=== PATIENT | female | born 1960 | race Caucasian/White ===

== ENCOUNTER 2017-10-24 14:40 | Emergency (ER) | payer BC ==
[2017-10-24 15:54] LABS: URINE APPEARANCE CLEAR; URINE BILIRUBIN NEGATIVE (NEGATIVE); URINE BLOOD TRACE-I (NEGATIVE); URINE COLOR YELLOW; URINE GLUCOSE (UA) NEGATIVE (NEGATIVE); URINE KETONE NEGATIVE (NEGATIVE); URINE LEUKOCYTE ESTERASE NEGATIVE (NEGATIVE); URINE NITRITE NEGATIVE (NEGATIVE); URINE PROTEIN NEGATIVE (NEGATIVE); URINE UROBILINOGEN 0.2 E.U./dL (0.20 - 1.00)
[2017-10-24] MEDS: ASPIRIN 81 MG CHEWABLE TABLET PO ONE (15:54)
[2017-10-24 15:55] LABS: BASO % 0.4 % (0-6); EOS % 1.3 % (0-6); GRAN % 62.3 % (47-80); HEMATOCRIT 42.3 % (35.0-47.0); HEMOGLOBIN 14.1 gm/dl (11.6-16.0); LYMPH % 30.6 % (16-45); MEAN CELL VOLUME 93.8 fl (81-97); MEAN CORPUSCULAR HEMOGLOBIN 31.3 pg (27-33); MEAN CORPUSCULAR HGB CONC 33.3 g/dl (32-36); MEAN PLATELET VOLUME 9.6 fl (7.4-10.4); MONO % 5.4 % (0-9); PLATELET COUNT 339 K/uL (130-400); RED BLOOD COUNT 4.51 M/uL (3.80-5.40); RED CELL DISTRIBUTION WIDTH 14.6 % (11.5-14.5); WHITE BLOOD COUNT W/O DIFF 10.8 K/uL (4.2-12.2)
[2017-10-24 16:03] LABS: URINE BACTERIA 2+; URINE RBC 0 - 2 (NONE SEEN); URINE WBC 0 - 2 (0-2/hpf)
[2017-10-24 16:05] LABS: BLOOD UREA NITROGEN 22 mg/dL (6-20)
[2017-10-24 16:06] LABS: CREATININE 0.8 mg/dL (0.5-0.9); EST GLOMERULAR FILTRATION RATE > 60 mL/min; TOTAL PROTEIN 8.6 g/dL (6.6-8.7)
[2017-10-24 16:08] LABS: GLUCOSE,RANDOM 99 mg/dL (74-109)
[2017-10-24 16:11] LABS: ALB/GLOB RATIO 1.2 (1.1-1.8); ALBUMIN 4.6 g/dL (4.0-5.0); ALKALINE PHOSPHATASE 73 U/L (35-104); ALT/SGPT 17 U/L (<33); AST/SGOT 19 U/L (10.0-35.0); CREATINE PHOSPHOKINASE 323 U/L (26-192)
[2017-10-24 16:13] LABS: CKMB 4.2 ng/mL (<3.77)
[2017-10-24 16:14] LABS: NTpro B-NATRIURETIC PEPTIDE 35.79 pg/mL (<125)
[2017-10-24 16:24] LABS: THYROID STIMULATING HORMONE 11.02 uIU/mL (0.270-4.20)
[2017-10-24] MEDS: ONDANSETRON HCL IV 4 MG/2 ML VIAL IVP ONE (17:12)
[2017-10-24 17:27] LABS: THYROXINE (T4) 8.5 ug/dL (4.5-11.7)
--- NOTE | 2017-10-24 18:25 | Emergency Department Record ---
History of Present Illness - General Chief Complaint: Chest Pain Stated Complaint: CHEST PAINS Time Seen by Provider: 10/24/17 15:03 Source: Patient Mode of Arrival: Ambulatory Limitations: No limitations - History of Present Illness Initial Comments: pt was at a motorcycle class in [place] and became very hot, she became lightheaded and sob. they stopped the class and had her leave. it was 45 minutes away. as she was driving home she still felt sob and then thought she had some tightness/heaviness in her chest. by the time she got here the heaviness is gone but she still feels sob. she stopped smoking a year ago. Complaint: Chest pain Onset/Timin -: Days(s) Pain Location: Substernal Severity scale (1-10): 4 Quality: Aching, Dull Consistency: Constant Improves With: Nothing Worsens With: Nothing Anginal Symptoms: Dyspnea Treatments Prior to Arrival: None - Related Data Allergies Allergy/AdvReac Type Severity Reaction Status Date / Time iodine Allergy Intermediate unknown Verified 10/24/17 14:51 acetaminophen [From Vicodin] Allergy Mild unknown Verified 10/24/17 14:51 amitriptyline HCl Allergy Mild unknown Verified 10/24/17 14:51 [From Elavil] aripiprazole [From Abilify] Allergy Mild unknown Verified 10/24/17 14:51 brexpiprazole [From Rexulti] Allergy Mild unknown Verified 10/24/17 14:51 bupropion HCl Allergy Mild unknown Verified 10/24/17 14:51 [From Wellbutrin] carisoprodol [From Soma] Allergy Mild unknown Verified 10/24/17 14:51 chlorpromazine HCl Allergy Mild unknown Verified 10/24/17 14:51 [From Thorazine] citalopram hydrobromide Allergy Mild unknown Verified 10/24/17 14:51 [From Celexa] clomipramine HCl Allergy Mild unknown Verified 10/24/17 14:51 [From Anafranil] clozapine [From Clozaril] Allergy Mild unknown Verified 10/24/17 14:51 codeine Allergy Mild unknown Verified 10/24/17 14:51 desipramine HCl Allergy Mild unknown Verified 10/24/17 14:51 [From Norpramin] diazepam [From Valium] Allergy Mild unknown Verified 10/24/17 14:51 doxepin HCl [From Sinequan] Allergy Mild unknown Verified 10/24/17 14:51 duloxetine HCl Allergy Mild unknown Verified 10/24/17 14:51 [From Cymbalta] escitalopram oxalate Allergy Mild unknown Verified 10/24/17 14:51 [From Lexapro] fluoxetine HCl [From Prozac] Allergy Mild unknown Verified 10/24/17 14:51 fluphenazine enanthate Allergy Mild unknown Verified 10/24/17 14:51 [From Prolixin] fluphenazine HCl Allergy Mild unknown Verified 10/24/17 14:51 [From Prolixin] fluvoxamine maleate Allergy Mild unknown Verified 10/24/17 14:51 [From Luvox] haloperidol [From Haldol] Allergy Mild unknown Verified 10/24/17 14:51 haloperidol lactate Allergy Mild unknown Verified 10/24/17 14:51 [From Haldol] hydrocodone bitartrate Allergy Mild unknown Verified 10/24/17 14:51 [From Vicodin] iloperidone [From Fanapt] Allergy Mild uknown Verified 10/24/17 14:51 imipramine HCl Allergy Mild unknown Verified 10/24/17 14:51 [From Tofranil] loratadine [From Claritin] Allergy Mild unknown Verified 10/24/17 14:51 meperidine HCl [From Demerol] Allergy Mild unknown Verified 10/24/17 14:51 methadone HCl Allergy Mild unknown Verified 10/24/17 14:51 [From Dolophine] mirtazapine [From Remeron] Allergy Mild unknown Verified 10/24/17 14:51 naltrexone Allergy Mild unknown Verified 10/24/17 14:51 nortriptyline HCl Allergy Mild unknown Verified 10/24/17 14:51 [From Pamelor] olanzapine [From Zyprexa] Allergy Mild unknown Verified 10/24/17 14:51 oxycodone HCl Allergy Mild unknown Verified 10/24/17 14:51 [From OxyContin] paroxetine HCl [From Paxil] Allergy Mild unknown Verified 10/24/17 14:51 perphenazine [From Trilafon] Allergy Mild unknown Verified 10/24/17 14:51 pine nut Allergy Mild unknown Verified 10/24/17 14:51 propranolol HCl Allergy Mild unknown Verified 10/24/17 14:51 [From Inderal [place]] quetiapine fumarate Allergy Mild unknown Verified 10/24/17 14:51 [From Seroquel] risperidone [From Risperdal] Allergy Mild unknown Verified 10/24/17 14:51 selegiline [From Emsam] Allergy Mild unknown Verified 10/24/17 14:51 sertraline HCl [From Zoloft] Allergy Mild unknown Verified 10/24/17 14:51 tapentadol HCl [From Nucynta] Allergy Mild unknown Verified 10/24/17 14:51 thioridazine HCl Allergy Mild unknown Verified 10/24/17 14:51 [From Mellaril] tramadol Allergy Mild unknown Verified 10/24/17 14:51 trazodone HCl [From Desyrel] Allergy Mild unknown Verified 10/24/17 14:51 varenicline tartrate Allergy Mild unknown Verified 10/24/17 14:51 [From Chantix] venlafaxine HCl Allergy Mild unknown Verified 10/24/17 14:51 [From Effexor] vortioxetine hydrobromide Allergy Mild unknown Verified 10/24/17 14:51 [From Trintellix] zolpidem tartrate Allergy Mild unknown Verified 10/24/17 14:51 [From Ambien] chlorhexidine Allergy unknown Verified 10/24/17 14:51 Travel Screening - Travel/Exposure Within Last 30 Days Have you traveled within the last 30 days?: No - Travel/Exposure Within Last Year Have you traveled outside the [place] in the last year?: No - Additonal Travel Details Have you been exposed to anyone with a communicable illness?: No - Travel Symptoms Symptom Screening: None Review of Systems Reviewed: No additional complaints except as noted below Constitutional: Reports: As per HPI, Weight change. Denies: Chills, Fever, Malaise, Night sweats, Weakness Eyes: Reports: As per HPI. Denies: Eye discharge, Eye pain, Photophobia, Vision change ENT: Reports: As per HPI. Denies: Congestion, Dental pain, Ear pain, Epistaxis , Hearing loss, Throat pain Respiratory: Reports: As per HPI, Dyspnea. Denies: Cough, Hemoptysis, Stridor, Wheezes Cardiovascular: Reports: As per HPI, Chest pain, Dyspnea on exertion. Denies: Arrhythmia, Edema, Murmurs, Orthopnea, Palpitations, Paroxysmal nocturnal dyspnea, Rheumatic Fever, Syncope Endocrine: Reports: As per HPI. Denies: Fatigue, Heat or cold intolerance, Polydipsia, Polyuria Gastrointestinal: Reports: As per HPI. Denies: Abdominal pain, Constipation, Diarrhea, Hematemesis, Hematochezia, Melena, Nausea, Vomiting Genitourinary: Reports: As per HPI. Denies: Abnormal menses, Discharge, Dyspareunia, Dysuria, Frequency, Hematuria, Incontinence, Retention, Urgency Musculoskeletal: Reports: As per HPI. Denies: Arthralgia, Back pain, Gout, Joint swelling, Myalgia, Neck pain Skin: Reports: As per HPI. Denies: Bruising, Change in color, Change in hair/ nails, Lesions, Pruritus, Rash Neurological: Reports: As per HPI. Denies: Abnormal gait, Confusion, Headache, Numbness, Paresthesias, Seizure, Tingling, Tremors, Vertigo, Weakness Psychiatric: Reports: As per HPI. Denies: Anxiety, Auditory hallucinations, Depression, Homicidal thoughts, Suicidal thoughts, Visual hallucinations Hematological/Lymphatic: Reports: As per HPI. Denies: Anemia, Blood Clots, Easy bleeding, Easy bruising, Swollen glands Past Medical History - SOCIAL HISTORY Smoking Status: Former smoker Alcohol Use: Occasional Drug Use: Occasional Drug Use Detail:: Marijuana - RESPIRATORY Hx Respiratory Disorders: Yes Hx COPD: Yes (emphysema) - CARDIOVASCULAR Hx Cardio Disorders: Yes Hx Hypertension: Yes - NEURO Hx Neuro Disorders: Yes Hx Neuropathy: Yes (both hands, left arm) Hx Weakness: Yes - GI Hx GI Disorders: Yes Hx Abdominal Pain: Yes (RUQ, LLQ) Hx Diverticulitis: Yes (in past (?)) Hx GI Bleed: Yes Hx Liver Disease: Yes (B (from a blood tranfussion)) Hx Nausea/Vomiting: Yes Hx Rectal Bleeding: Yes - Hx Genitourinary Disorders: Yes Hx Bladder Problem: Yes (stress incontinence) - ENDOCRINE Hx Endocrine Disorders: Yes Hx Thyroid Disease: Yes (hoshimotos) - MUSCULOSKELETAL Hx Musculoskeletal Disorders: Yes Comment:: right elbow tendonistis - PSYCH Hx Psych Problems: Yes Comment:: PTSD - HEMATOLOGY/ONCOLOGY Hx Hematology/Oncology Disorders: Yes Hx Blood Transfusions: Yes Hx Blood Transfusion Reaction: Yes (Hep B) Family Medical History Any Significant Family History?: No Hx Heart Disease: Father Physical Exam - General General Appearance: Alert, Oriented x3, Cooperative, No acute distress - Head Head exam: Normal inspection - Eye Eye exam: Normal appearance, PERRL, EOMI Pupils: Normal accommodation - ENT ENT exam: Normal exam, Mucous membranes moist, Normal external ear exam, Normal orophraynx Ear exam: Normal external inspection. negative: External canal tenderness Nasal Exam: Normal inspection. negative: Discharge, Sinus tenderness Mouth exam: Normal external inspection, Tongue normal Teeth exam: Normal inspection. negative: Dental caries Throat exam: Normal inspection. negative: Tonsillar erythema, Tonsillar exudate - Neck Neck exam: Normal inspection, Full ROM. negative: Tenderness - Respiratory Respiratory exam: Normal lung sounds bilaterally. negative: Respiratory distress - Cardiovascular Cardiovascular Exam: Regular rate, Normal rhythm, Normal heart sounds - GI/Abdominal GI/Abdominal exam: Soft, Normal bowel sounds. negative: Tenderness - Rectal Rectal exam: Deferred - exam: Deferred - Extremities Extremities exam: Normal inspection, Full ROM, Normal capillary refill. negative: Tenderness - Back Back exam: Reports: Normal inspection, Full ROM. Denies: Muscle spasm, Rash noted, Tenderness - Neurological Neurological exam: Alert, CN II-XII intact, Normal gait, Oriented X3 - Psychiatric Psychiatric exam: Normal affect, Normal mood - Skin Skin exam: Dry, Intact, Normal color, Warm Course Vital Signs 10/24/17 10/24/17 10/24/17 14:42 16:30 17:40 Temperature 98.4 F Pulse Rate 87 Pulse Rate [ 85 86 Pulse Ox Probe] Respiratory 20 16 16 Rate Blood Pressure 177/102 Blood Pressure 144/91 153/99 [Left Arm] Pulse Ox 99 100 100 - Reevaluation(s) Reevaluation #1: 10/24/17 18:28 pt has remained pain free. admission or transfer were d/w pt but she does not want that. she has agreed to a 4 hour troponin and cpk ckmb and if its positive she will agree to be transferred. if it is negative pt states she will follow up with a service promoter salesperson in [place] for a stress test Reevaluation #2: 10/24/17 18:32 care being assumed by dr crook Medical Decision Making - Lab Data Result diagrams: 10/24/17 15:35 10/24/17 15:35 Lab Results 10/24/17 10/24/17 10/24/17 Range/Units 15:35 15:35 15:35 WBC 10.8 (4.2-12.2) K/uL RBC 4.51 (3.80-5.40) M/uL Hgb 14.1 (11.6-16.0) gm/dl Hct 42.3 (35.0-47.0) % MCV 93.8 (81-97) fl MCH 31.3 (27-33) pg MCHC 33.3 (32-36) g/dl RDW 14.6 H (11.5-14.5) % Plt Count 339 (130-400) K/uL MPV 9.6 (7.4-10.4) fl Gran % 62.3 (47-80) % Lymphocytes % 30.6 (16-45) % Monocytes % 5.4 (0-9) % Eosinophils % 1.3 (0-6) % Basophils % 0.4 (0-6) % D-Dimer 0.29 (0-0.59) mg/L FEU Sodium 141 (136-145) mmol/L Potassium 3.6 (3.4-4.5) mmol/L Chloride 97 L (98-107) mmol/L Carbon Dioxide 23.0 (22-29) mmol/L Anion Gap 21.0 H (7-16) BUN 22 H (6-20) mg/dL Creatinine 0.8 (0.5-0.9) mg/dL Estimated GFR > 60 mL/min Random Glucose 99 (74-109) mg/dL Calcium 9.7 (8.6-10.0) mg/dL Total Bilirubin 0.20 (0.2-1.0) mg/dL AST 19 (10.0-35.0) U/L ALT 17 (<33) U/L Alkaline Phosphatase 73 (35-104) U/L Creatine Kinase 323 H (26-192) U/L CK-MB (CK-2) 4.2 H (<3.77) ng/mL Troponin T < 0.010 (0-0.010) ng/mL NT-Pro-B Natriuret Pep 35.79 (<125) pg/mL Total Protein 8.6 (6.6-8.7) g/dL Albumin 4.6 (4.0-5.0) g/dL Globulin 4.0 (1.4-4.8) gm/dL Albumin/Globulin Ratio 1.2 (1.1-1.8) TSH 11.02 H (0.270-4.20) uIU/mL Thyroxine (T4) (4.5-11.7) ug/dL T3 Uptake (25-35) % Urine Color Urine Appearance Urine pH (5.0-8.0) Ur Specific [place] (1.002-1.030) Urine Protein (NEGATIVE) Urine Glucose (UA) (NEGATIVE) Urine Ketones (NEGATIVE) Urine Blood (NEGATIVE) Urine Nitrite (NEGATIVE) Urine Bilirubin (NEGATIVE) Urine Urobilinogen (0.20 - 1.00) E.U./dL Ur Leukocyte Esterase (NEGATIVE) Urine RBC (NONE SEEN) Urine WBC (0-2/hpf) Ur Epithelial Cells (FEW) Urine Bacteria 10/24/17 10/24/17 Range/Units 15:35 15:35 WBC (4.2-12.2) K/uL RBC (3.80-5.40) M/uL Hgb (11.6-16.0) gm/dl Hct (35.0-47.0) % MCV (81-97) fl MCH (27-33) pg MCHC (32-36) g/dl RDW (11.5-14.5) % Plt Count (130-400) K/uL MPV (7.4-10.4) fl Gran % (47-80) % Lymphocytes % (16-45) % Monocytes % (0-9) % Eosinophils % (0-6) % Basophils % (0-6) % D-Dimer (0-0.59) mg/L FEU Sodium (136-145) mmol/L Potassium (3.4-4.5) mmol/L Chloride (98-107) mmol/L Carbon Dioxide (22-29) mmol/L Anion Gap (7-16) BUN (6-20) mg/dL Creatinine (0.5-0.9) mg/dL Estimated GFR mL/min Random Glucose (74-109) mg/dL Calcium (8.6-10.0) mg/dL Total Bilirubin (0.2-1.0) mg/dL AST (10.0-35.0) U/L ALT (<33) U/L Alkaline Phosphatase (35-104) U/L Creatine Kinase (26-192) U/L CK-MB (CK-2) (<3.77) ng/mL Troponin T (0-0.010) ng/mL NT-Pro-B Natriuret Pep (<125) pg/mL Total Protein (6.6-8.7) g/dL Albumin (4.0-5.0) g/dL Globulin (1.4-4.8) gm/dL Albumin/Globulin Ratio (1.1-1.8) TSH (0.270-4.20) uIU/mL Thyroxine (T4) 8.50 (4.5-11.7) ug/dL T3 Uptake 33 (25-35) % Urine Color Yellow Urine Appearance Clear Urine pH 5.5 (5.0-8.0) Ur Specific [place] 1.010 (1.002-1.030) Urine Protein Negative (NEGATIVE) Urine Glucose (UA) Negative (NEGATIVE) Urine Ketones Negative (NEGATIVE) Urine Blood Trace-i (NEGATIVE) Urine Nitrite Negative (NEGATIVE) Urine Bilirubin Negative (NEGATIVE) Urine Urobilinogen 0.2 (0.20 - 1.00) E.U./dL Ur Leukocyte Esterase Negative (NEGATIVE) Urine RBC 0 - 2 (NONE SEEN) Urine WBC 0 - 2 (0-2/hpf) Ur Epithelial Cells 7 - 10 (FEW) Urine Bacteria 2+ Disposition Clinical Impression: Chest tightness or pressure, Shortness of breath Quality - Blood Pressure Screening Does Patient Have Any of the Following: No Blood Pressure Classification: Hypertensive Reading Systolic Measurement: 177 Diastolic Measurement: 102
--- NOTE | 2017-10-24 20:11 | Emergency Department Record ---
History of Present Illness - General Chief Complaint: Chest Pain Stated Complaint: CHEST PAINS Time Seen by Provider: 10/24/17 15:03 Source: Patient Mode of Arrival: Ambulatory Limitations: No limitations - History of Present Illness Onset/Timin -: Days(s) Pain Location: Substernal Severity scale (1-10): 4 Quality: Aching, Dull Consistency: Constant Improves With: Nothing Worsens With: Nothing Anginal Symptoms: Dyspnea Treatments Prior to Arrival: None - Related Data Allergies Allergy/AdvReac Type Severity Reaction Status Date / Time iodine Allergy Intermediate unknown Verified 10/24/17 14:51 acetaminophen [From Vicodin] Allergy Mild unknown Verified 10/24/17 14:51 amitriptyline HCl Allergy Mild unknown Verified 10/24/17 14:51 [From Elavil] aripiprazole [From Abilify] Allergy Mild unknown Verified 10/24/17 14:51 brexpiprazole [From Rexulti] Allergy Mild unknown Verified 10/24/17 14:51 bupropion HCl Allergy Mild unknown Verified 10/24/17 14:51 [From Wellbutrin] carisoprodol [From Soma] Allergy Mild unknown Verified 10/24/17 14:51 chlorpromazine HCl Allergy Mild unknown Verified 10/24/17 14:51 [From Thorazine] citalopram hydrobromide Allergy Mild unknown Verified 10/24/17 14:51 [From Celexa] clomipramine HCl Allergy Mild unknown Verified 10/24/17 14:51 [From Anafranil] clozapine [From Clozaril] Allergy Mild unknown Verified 10/24/17 14:51 codeine Allergy Mild unknown Verified 10/24/17 14:51 desipramine HCl Allergy Mild unknown Verified 10/24/17 14:51 [From Norpramin] diazepam [From Valium] Allergy Mild unknown Verified 10/24/17 14:51 doxepin HCl [From Sinequan] Allergy Mild unknown Verified 10/24/17 14:51 duloxetine HCl Allergy Mild unknown Verified 10/24/17 14:51 [From Cymbalta] escitalopram oxalate Allergy Mild unknown Verified 10/24/17 14:51 [From Lexapro] fluoxetine HCl [From Prozac] Allergy Mild unknown Verified 10/24/17 14:51 fluphenazine enanthate Allergy Mild unknown Verified 10/24/17 14:51 [From Prolixin] fluphenazine HCl Allergy Mild unknown Verified 10/24/17 14:51 [From Prolixin] fluvoxamine maleate Allergy Mild unknown Verified 10/24/17 14:51 [From Luvox] haloperidol [From Haldol] Allergy Mild unknown Verified 10/24/17 14:51 haloperidol lactate Allergy Mild unknown Verified 10/24/17 14:51 [From Haldol] hydrocodone bitartrate Allergy Mild unknown Verified 10/24/17 14:51 [From Vicodin] iloperidone [From Fanapt] Allergy Mild uknown Verified 10/24/17 14:51 imipramine HCl Allergy Mild unknown Verified 10/24/17 14:51 [From Tofranil] loratadine [From Claritin] Allergy Mild unknown Verified 10/24/17 14:51 meperidine HCl [From Demerol] Allergy Mild unknown Verified 10/24/17 14:51 methadone HCl Allergy Mild unknown Verified 10/24/17 14:51 [From Dolophine] mirtazapine [From Remeron] Allergy Mild unknown Verified 10/24/17 14:51 naltrexone Allergy Mild unknown Verified 10/24/17 14:51 nortriptyline HCl Allergy Mild unknown Verified 10/24/17 14:51 [From Pamelor] olanzapine [From Zyprexa] Allergy Mild unknown Verified 10/24/17 14:51 oxycodone HCl Allergy Mild unknown Verified 10/24/17 14:51 [From OxyContin] paroxetine HCl [From Paxil] Allergy Mild unknown Verified 10/24/17 14:51 perphenazine [From Trilafon] Allergy Mild unknown Verified 10/24/17 14:51 pine nut Allergy Mild unknown Verified 10/24/17 14:51 propranolol HCl Allergy Mild unknown Verified 10/24/17 14:51 [From Inderal LA] quetiapine fumarate Allergy Mild unknown Verified 10/24/17 14:51 [From Seroquel] risperidone [From Risperdal] Allergy Mild unknown Verified 10/24/17 14:51 selegiline [From Emsam] Allergy Mild unknown Verified 10/24/17 14:51 sertraline HCl [From Zoloft] Allergy Mild unknown Verified 10/24/17 14:51 tapentadol HCl [From Nucynta] Allergy Mild unknown Verified 10/24/17 14:51 thioridazine HCl Allergy Mild unknown Verified 10/24/17 14:51 [From Mellaril] tramadol Allergy Mild unknown Verified 10/24/17 14:51 trazodone HCl [From Desyrel] Allergy Mild unknown Verified 10/24/17 14:51 varenicline tartrate Allergy Mild unknown Verified 10/24/17 14:51 [From Chantix] venlafaxine HCl Allergy Mild unknown Verified 10/24/17 14:51 [From Effexor] vortioxetine hydrobromide Allergy Mild unknown Verified 10/24/17 14:51 [From Trintellix] zolpidem tartrate Allergy Mild unknown Verified 10/24/17 14:51 [From Ambien] chlorhexidine Allergy unknown Verified 10/24/17 14:51 Travel Screening - Travel/Exposure Within Last 30 Days Have you traveled within the last 30 days?: No - Travel/Exposure Within Last Year Have you traveled outside the [place] in the last year?: No - Additonal Travel Details Have you been exposed to anyone with a communicable illness?: No - Travel Symptoms Symptom Screening: None Review of Systems Constitutional: Reports: As per HPI, Weight change. Denies: Chills, Fever, Malaise, Night sweats, Weakness Eyes: Reports: As per HPI. Denies: Eye discharge, Eye pain, Photophobia, Vision change ENT: Reports: As per HPI. Denies: Congestion, Dental pain, Ear pain, Epistaxis , Hearing loss, Throat pain Respiratory: Reports: As per HPI, Dyspnea. Denies: Cough, Hemoptysis, Stridor, Wheezes Cardiovascular: Reports: As per HPI, Chest pain, Dyspnea on exertion. Denies: Arrhythmia, Edema, Murmurs, Orthopnea, Palpitations, Paroxysmal nocturnal dyspnea, Rheumatic Fever, Syncope Endocrine: Reports: As per HPI. Denies: Fatigue, Heat or cold intolerance, Polydipsia, Polyuria Gastrointestinal: Reports: As per HPI. Denies: Abdominal pain, Constipation, Diarrhea, Hematemesis, Hematochezia, Melena, Nausea, Vomiting Genitourinary: Reports: As per HPI. Denies: Abnormal menses, Discharge, Dyspareunia, Dysuria, Frequency, Hematuria, Incontinence, Retention, Urgency Musculoskeletal: Reports: As per HPI. Denies: Arthralgia, Back pain, Gout, Joint swelling, Myalgia, Neck pain Skin: Reports: As per HPI. Denies: Bruising, Change in color, Change in hair/ nails, Lesions, Pruritus, Rash Neurological: Reports: As per HPI. Denies: Abnormal gait, Confusion, Headache, Numbness, Paresthesias, Seizure, Tingling, Tremors, Vertigo, Weakness Psychiatric: Reports: As per HPI. Denies: Anxiety, Auditory hallucinations, Depression, Homicidal thoughts, Suicidal thoughts, Visual hallucinations Hematological/Lymphatic: Reports: As per HPI. Denies: Anemia, Blood Clots, Easy bleeding, Easy bruising, Swollen glands Past Medical History - SOCIAL HISTORY Smoking Status: Former smoker Alcohol Use: Occasional Drug Use: Occasional Drug Use Detail:: Marijuana - RESPIRATORY Hx Respiratory Disorders: Yes Hx COPD: Yes (emphysema) - CARDIOVASCULAR Hx Cardio Disorders: Yes Hx Hypertension: Yes - NEURO Hx Neuro Disorders: Yes Hx Neuropathy: Yes (both hands, left arm) Hx Weakness: Yes - GI Hx GI Disorders: Yes Hx Abdominal Pain: Yes (RUQ, LLQ) Hx Diverticulitis: Yes (in past (?)) Hx GI Bleed: Yes Hx Liver Disease: Yes (B (from a blood tranfussion)) Hx Nausea/Vomiting: Yes Hx Rectal Bleeding: Yes - Hx Genitourinary Disorders: Yes Hx Bladder Problem: Yes (stress incontinence) - ENDOCRINE Hx Endocrine Disorders: Yes Hx Thyroid Disease: Yes (hoshimotos) - MUSCULOSKELETAL Hx Musculoskeletal Disorders: Yes Comment:: right elbow tendonistis - PSYCH Hx Psych Problems: Yes Comment:: PTSD - HEMATOLOGY/ONCOLOGY Hx Hematology/Oncology Disorders: Yes Hx Blood Transfusions: Yes Hx Blood Transfusion Reaction: Yes (Hep B) Family Medical History Any Significant Family History?: No Hx Heart Disease: Father Physical Exam - General Limitations: No limitations Course Vital Signs 10/24/17 10/24/17 10/24/17 14:42 16:30 17:40 Temperature 98.4 F Pulse Rate 87 Pulse Rate [ 85 86 Pulse Ox Probe] Respiratory 20 16 16 Rate Blood Pressure 177/102 Blood Pressure 144/91 153/99 [Left Arm] Pulse Ox 99 100 100 10/24/17 18:43 Temperature Pulse Rate Pulse Rate [ 90 Pulse Ox Probe] Respiratory 16 Rate Blood Pressure Blood Pressure 149/77 [Left Arm] Pulse Ox 96 - Reevaluation(s) Reevaluation #1: 10/24/17 18:43 Assumed care from previous provider. Patient was seen and examined, resting comfortably awaiting repeat Troponin, and denies needs at this time. Reevaluation #2: 10/24/17 20:19 Patient's repeat Troponin has resulted and is negative for myocardial injury. Patient appears stable for discharge at this time with outpatient follow-up in 3 -5 days. Medical Decision Making - Lab Data Result diagrams: 10/24/17 15:35 10/24/17 15:35 Lab Results 10/24/17 10/24/17 10/24/17 Range/Units 15:35 15:35 15:35 WBC 10.8 (4.2-12.2) K/uL RBC 4.51 (3.80-5.40) M/uL Hgb 14.1 (11.6-16.0) gm/dl Hct 42.3 (35.0-47.0) % MCV 93.8 (81-97) fl MCH 31.3 (27-33) pg MCHC 33.3 (32-36) g/dl RDW 14.6 H (11.5-14.5) % Plt Count 339 (130-400) K/uL MPV 9.6 (7.4-10.4) fl Gran % 62.3 (47-80) % Lymphocytes % 30.6 (16-45) % Monocytes % 5.4 (0-9) % Eosinophils % 1.3 (0-6) % Basophils % 0.4 (0-6) % D-Dimer 0.29 (0-0.59) mg/L FEU Sodium 141 (136-145) mmol/L Potassium 3.6 (3.4-4.5) mmol/L Chloride 97 L (98-107) mmol/L Carbon Dioxide 23.0 (22-29) mmol/L Anion Gap 21.0 H (7-16) BUN 22 H (6-20) mg/dL Creatinine 0.8 (0.5-0.9) mg/dL Estimated GFR > 60 mL/min Random Glucose 99 (74-109) mg/dL Calcium 9.7 (8.6-10.0) mg/dL Total Bilirubin 0.20 (0.2-1.0) mg/dL AST 19 (10.0-35.0) U/L ALT 17 (<33) U/L Alkaline Phosphatase 73 (35-104) U/L Creatine Kinase 323 H (26-192) U/L CK-MB (CK-2) 4.2 H (<3.77) ng/mL Troponin T < 0.010 (0-0.010) ng/mL NT-Pro-B Natriuret Pep 35.79 (<125) pg/mL Total Protein 8.6 (6.6-8.7) g/dL Albumin 4.6 (4.0-5.0) g/dL Globulin 4.0 (1.4-4.8) gm/dL Albumin/Globulin Ratio 1.2 (1.1-1.8) TSH 11.02 H (0.270-4.20) uIU/mL Thyroxine (T4) (4.5-11.7) ug/dL T3 Uptake (25-35) % Urine Color Urine Appearance Urine pH (5.0-8.0) Ur Specific [place] (1.002-1.030) Urine Protein (NEGATIVE) Urine Glucose (UA) (NEGATIVE) Urine Ketones (NEGATIVE) Urine Blood (NEGATIVE) Urine Nitrite (NEGATIVE) Urine Bilirubin (NEGATIVE) Urine Urobilinogen (0.20 - 1.00) E.U./dL Ur Leukocyte Esterase (NEGATIVE) Urine RBC (NONE SEEN) Urine WBC (0-2/hpf) Ur Epithelial Cells (FEW) Urine Bacteria 10/24/17 10/24/17 Range/Units 15:35 15:35 WBC (4.2-12.2) K/uL RBC (3.80-5.40) M/uL Hgb (11.6-16.0) gm/dl Hct (35.0-47.0) % MCV (81-97) fl MCH (27-33) pg MCHC (32-36) g/dl RDW (11.5-14.5) % Plt Count (130-400) K/uL MPV (7.4-10.4) fl Gran % (47-80) % Lymphocytes % (16-45) % Monocytes % (0-9) % Eosinophils % (0-6) % Basophils % (0-6) % D-Dimer (0-0.59) mg/L FEU Sodium (136-145) mmol/L Potassium (3.4-4.5) mmol/L Chloride (98-107) mmol/L Carbon Dioxide (22-29) mmol/L Anion Gap (7-16) BUN (6-20) mg/dL Creatinine (0.5-0.9) mg/dL Estimated GFR mL/min Random Glucose (74-109) mg/dL Calcium (8.6-10.0) mg/dL Total Bilirubin (0.2-1.0) mg/dL AST (10.0-35.0) U/L ALT (<33) U/L Alkaline Phosphatase (35-104) U/L Creatine Kinase (26-192) U/L CK-MB (CK-2) (<3.77) ng/mL Troponin T (0-0.010) ng/mL NT-Pro-B Natriuret Pep (<125) pg/mL Total Protein (6.6-8.7) g/dL Albumin (4.0-5.0) g/dL Globulin (1.4-4.8) gm/dL Albumin/Globulin Ratio (1.1-1.8) TSH (0.270-4.20) uIU/mL Thyroxine (T4) 8.50 (4.5-11.7) ug/dL T3 Uptake 33 (25-35) % Urine Color Yellow Urine Appearance Clear Urine pH 5.5 (5.0-8.0) Ur Specific [place] 1.010 (1.002-1.030) Urine Protein Negative (NEGATIVE) Urine Glucose (UA) Negative (NEGATIVE) Urine Ketones Negative (NEGATIVE) Urine Blood Trace-i (NEGATIVE) Urine Nitrite Negative (NEGATIVE) Urine Bilirubin Negative (NEGATIVE) Urine Urobilinogen 0.2 (0.20 - 1.00) E.U./dL Ur Leukocyte Esterase Negative (NEGATIVE) Urine RBC 0 - 2 (NONE SEEN) Urine WBC 0 - 2 (0-2/hpf) Ur Epithelial Cells 7 - 10 (FEW) Urine Bacteria 2+ Disposition Disposition: Discharge Clinical Impression: Chest tightness or pressure, Shortness of breath Disposition: Home, Self-Care Condition: (2) Stable Instructions: Chest Pain (ED) Additional Instructions: Return to ED if your symptoms worsen or if you have any concerns. Follow-up with your family doctor in 3-5 days as directed. Forms: Patient Portal Access Time of Disposition: 20:20 Quality - Quality Measures Quality Measures: N/A - Blood Pressure Screening Does Patient Have Any of the Following: No Blood Pressure Classification: Pre-Hypertensive BP Reading Systolic Measurement: 161 Diastolic Measurement: 87 Screening for High Blood Pressure: < Pre-Hypertensive BP, F/U Documented > [ [id number]] Pre-Hypertensive Follow-up Interventions: Referral to alternative/primary care provider.
== END 2017-10-24 20:39 | disposition home or self-care (01) ==
LOC: ER 14:40
DX: R07.89 Other chest pain (principal); R06.02 Shortness of breath; R42 Dizziness and giddiness; I10 Essential (primary) hypertension; Z87.891 Personal history of nicotine dependence
CPT/HCPCS: 80053; 81001; 82550; 82553; 83880; 84436; 84443; 84479; 84484; 85025; 85379; 93005; 93010; 96374; 99284; J2405